=== PATIENT | male | born 1950 | race Caucasian/White ===

== ENCOUNTER 2024-11-16 12:34 | Outpatient (CLI) | payer MEDICARE, BC | END 2024-11-16 12:35 | disposition home or self-care (01) | LOC: CSHCT 12:34 | PROVIDERS: ATTEND Family Medicine Sports Medicine | DX: Z12.2 Encounter for screening for malignant neoplasm of respiratory organs (principal); Z87.891 Personal history of nicotine dependence; R91.8 Other nonspecific abnormal finding of lung field | CPT/HCPCS: 71271 ==

== ENCOUNTER 2025-06-13 09:15 | Outpatient (CLI) | payer MEDICARE, BC | END 2025-06-13 09:16 | disposition home or self-care (01) | LOC: CSHRAD 09:15 | PROVIDERS: ATTEND Family Medicine Sports Medicine | DX: M25.551 Pain in right hip (principal); M54.50 Low back pain, unspecified; M47.816 Spondylosis without myelopathy or radiculopathy, lumbar region | CPT/HCPCS: 72100 ==

== ENCOUNTER 2025-06-15 10:26 | Outpatient (CLI) | payer MEDICARE, BC | END 2025-06-15 10:27 | disposition home or self-care (01) | LOC: CSHMRI 10:26 | PROVIDERS: ATTEND Family Medicine Sports Medicine | DX: M25.551 Pain in right hip (principal); S73.191A Other sprain of right hip, initial encounter; M79.89 Other specified soft tissue disorders ==